=== PATIENT | female | born 1945 | race Caucasian/White ===

== ENCOUNTER 2020-07-03 06:08 | Inpatient (IN) ==
[2020-06-23 12:52] LABS: Basophils % 0.6 % (0.0-0.8); Eosinophils # 0.1 10*3/uL (0.0-0.87); Eosinophils % 2.3 % (0.00-10.9); Hematocrit 41.1 VOL% (35.7-47.0); Hemoglobin 13.3 GM/DL (12.0-16.0); Immature Granulocytes % 0.2 %; Immature Granulocytes Absolute 0.01 #; Lymphocytes # 1.4 10*3/uL (1.4-4.0); Lymphocytes % 27.7 % (21.3-54.2); Mean Corpuscular HGB Conc 32.4 GM/DL (32-36); Mean Corpuscular Volume 94.3 FL (87-102); Mean Platelet Volume 11.4 FL (9.6-12.0); Monocytes % 8.3 % (1.7-12.7); Neutrophils % 60.9 % (38.7-73.9); Platelet Count 185 T/CUMM (130-400); Red Blood Count 4.36 MC/CUMM (3.8-5.5); Red Cell Distribution Width 12.1 % (9.3-17.3); White Blood Count 5.2 T/CUMM (4-12)
[2020-06-23 13:21] LABS: Albumin 3.8 G/DL (3.4-5.0); Bilirubin,Total 0.5 MG/DL (0.2-1.0); Calcium 8.6 MG/DL (8.5-10.1); Osmolality,Calculated 279.4 MOS/KG (273-304); Total Protein 7.5 G/DL (6.4-8.3)
[2020-07-03] MEDS ORDERED: FAMOTIDINE 20 MG/2 ML VIAL IV ONE ×2 (06:26→06:31)
[2020-07-03] MEDS ORDERED: ALVIMOPAN 12 MG CAPSULE PO ONE (06:30)
[2020-07-03] MEDS ORDERED: LACTATED RINGERS 1,000 ML IV SCH (06:30)
[2020-07-03] MEDS ORDERED: DEXAMETHASONE 4 MG/1 ML VIAL ONE (06:51)
[2020-07-03] MEDS ORDERED: ROPIVACAINE 0.5% 30 ML VIAL ONE (06:51)
[2020-07-03] MEDS ORDERED: DEXMEDETOMIDINE 200 MCG/2 ML VIAL ONE (06:51)
[2020-07-03] MEDS ORDERED: MIDAZOLAM 2 MG/2 ML VIAL ONE (06:51)
[2020-07-03] MEDS ORDERED: LIDOCAINE 1% 5 ML VIAL ONE (06:51)
[2020-07-03] MEDS ORDERED: fentaNYL 100 MCG/2 ML VIAL ONE (08:02)
[2020-07-03] MEDS ORDERED: propofoL 200 MG/20 ML VIAL IV ONE (08:40)
[2020-07-03] MEDS ORDERED: LIDOCAINE 2% 5 ML VIAL ONE (08:40)
[2020-07-03] MEDS ORDERED: ONDANSETRON 4 MG/2 ML VIAL ONE (08:40)
[2020-07-03] MEDS ORDERED: GLYCOPYRROLATE 0.4 MG/2 ML VIAL ONE ×2 (08:40→10:20)
[2020-07-03] MEDS ORDERED: ROCURONIUM 50 MG/5 ML VIAL IV ONE (08:40)
[2020-07-03] MEDS ORDERED: LACTATED RINGERS 1,000 ML IV ONE (09:25)
[2020-07-03] MEDS ORDERED: MICROFIBRILLAR COLLAGEN POWDER 1 GM CAN TOP ONE (09:44)
[2020-07-03] MEDS ORDERED: NEOSTIGMINE 10 MG/10 ML VIAL ONE ×2 (10:20→10:21)
[2020-07-03] MEDS ORDERED: PROMETHAZINE INJ 25 MG in SODIUM CHLORIDE 0.9% 50 ML IV PRN (10:44)
[2020-07-03] MEDS ORDERED: ONDANSETRON 4 MG/2 ML VIAL IV PRN (10:44)
[2020-07-03] MEDS ORDERED: diphenhydrAMINE 50 MG/1 ML VIAL IV PRN (10:44)
[2020-07-03] MEDS: MEPERIDINE 25 MG/1 ML VIAL IV PRN ×2 (10:50→11:00)
[2020-07-03 10:55] LABS: Bilirubin,Urine Negative (Negative); Blood, Urine Negative (Negative); Glucose,Urine (UA) Negative (Negative); Ketones,Urine Negative (Negative); Nitrite,Urine Positive (Negative); Protein,Urine Negative; Urine Appearance CLOUDY (Clear); Urine Color Yellow (Yellow); Urine Urobilinogen < 2.0 EU/DL (0.2-1.0); WBC,Urine 89 /HPF (0-6)
[2020-07-03] MEDS ORDERED: DESFLURANE 1 UNIT/15 MINUTE INH ONE (11:19)
[2020-07-03 12:36] LABS: Hematocrit 39.1 VOL% (35.7-47.0); Hemoglobin 12.6 GM/DL (12.0-16.0)
[2020-07-03] MEDS: HYDROmorphone 2 MG/1 ML VIAL IV PRN ×3 (13:03→23:55)
[2020-07-03] MEDS: metroNIDAZOLE INJ 500 MG in PREMIX 1 EACH IV SCH (16:29)
[2020-07-03] MEDS ORDERED: HYDROmorphone 2 MG/1 ML VIAL IV ONE (17:41)
[2020-07-03] MEDS: ACETAMINOPHEN 325 MG TABLET PO SCH ×3 (17:57→23:55)
[2020-07-03] MEDS: hydrALAZINE 20 MG/1 ML VIAL IV PRN (17:58)
[2020-07-03 19:56] LABS: Hematocrit 40.4 VOL% (35.7-47.0); Hemoglobin 13.2 GM/DL (12.0-16.0)
[2020-07-03] MEDS: ONDANSETRON 4 MG/2 ML VIAL IV PRN (20:07)
[2020-07-04] MEDS: metroNIDAZOLE INJ 500 MG in PREMIX 1 EACH IV SCH (01:01)
[2020-07-04] MEDS: HYDROmorphone 2 MG/1 ML VIAL IV PRN ×5 (02:10→14:21)
[2020-07-04] MEDS: ONDANSETRON 4 MG/2 ML VIAL IV PRN (02:10)
[2020-07-04] MEDS ORDERED: LEVOFLOXACIN INJ 500 MG in PREMIX 1 EACH IV SCH (05:00)
[2020-07-04] MEDS: ACETAMINOPHEN 325 MG TABLET PO SCH ×4 (05:08→23:54)
[2020-07-04 06:54] LABS: Basophils % 0.1 % (0.0-0.8); Eosinophils % 0.1 % (0.00-10.9); Hemoglobin 12.8 GM/DL (12.0-16.0); Immature Granulocytes % 0.5 %; Immature Granulocytes Absolute 0.08 #; Lymphocytes # 0.8 10*3/uL (1.4-4.0); Lymphocytes % 4.8 % (21.3-54.2); Mean Corpuscular HGB Conc 32.8 GM/DL (32-36); Mean Corpuscular Volume 92.2 FL (87-102); Mean Platelet Volume 10.8 FL (9.6-12.0); Monocytes % 6.5 % (1.7-12.7); Platelet Count 247 T/CUMM (130-400); Red Blood Count 4.23 MC/CUMM (3.8-5.5); Red Cell Distribution Width 12.4 % (9.3-17.3); White Blood Count 15.5 T/CUMM (4-12)
[2020-07-04 07:22] LABS: Band Neutrophils 10 % (0-10); Eosinophils 1 % (0-10); Hypochromasia 1+; Lymphocytes 4 % (20-55); Microcytosis Slight; Segmented Neutrophils 77 % (50-85); Total Cells Counted 100
[2020-07-04 07:23] LABS: Ovalocytes Slight; Platelet Estimate Normal
[2020-07-04 07:25] LABS: Calcium 7.4 MG/DL (8.5-10.1)
[2020-07-04] MEDS ORDERED: tiZANidine 4 MG TABLET PO PRN (09:14)
[2020-07-04] MEDS: HYOSCYAMINE 0.125 MG TABLET PO SCH ×4 (12:16→20:59)
[2020-07-04] MEDS ORDERED: NALOXONE 0.4 MG/ML VIAL IV PRN (14:35)
[2020-07-04] MEDS: HYDROmorphone PCA 30 MG/30 ML SYRINGE IV SCH (15:44)
[2020-07-04] MEDS: PARoxetine 20 MG TABLET PO SCH ×2 (20:59→21:58)
[2020-07-05] MEDS: LEVOTHYROXINE 112 MCG TABLET PO SCH (06:01)
[2020-07-05] MEDS: ACETAMINOPHEN 325 MG TABLET PO SCH ×4 (06:01→23:58)
[2020-07-05 06:31] LABS: Basophils # 0.1 10*3/uL (0.0-0.2); Basophils % 0.4 % (0.0-0.8); Eosinophils # 0.1 10*3/uL (0.0-0.87); Eosinophils % 0.4 % (0.00-10.9); Hematocrit 38.7 VOL% (35.7-47.0); Hemoglobin 12.6 GM/DL (12.0-16.0); Immature Granulocytes % 0.2 %; Immature Granulocytes Absolute 0.03 #; Lymphocytes # 0.3 10*3/uL (1.4-4.0); Mean Corpuscular HGB Conc 32.6 GM/DL (32-36); Mean Platelet Volume 11.3 FL (9.6-12.0); Monocytes % 3.2 % (1.7-12.7); Neutrophils % 93.8 % (38.7-73.9); Platelet Count 256 T/CUMM (130-400); Red Blood Count 4.16 MC/CUMM (3.8-5.5); Red Cell Distribution Width 12.6 % (9.3-17.3); White Blood Count 12.4 T/CUMM (4-12)
[2020-07-05 08:43] LABS: Calcium 8.3 MG/DL (8.5-10.1); Osmolality,Calculated 280.4 MOS/KG (273-304)
[2020-07-05] MEDS: HYOSCYAMINE 0.125 MG TABLET PO SCH ×4 (08:54→20:58)
[2020-07-05] MEDS: CALCIUM (CARBONATE) 500 MG TABLET PO SCH (08:54)
[2020-07-05] MEDS: SODIUM CHLORIDE 0.45% 1,000 ML IV SCH ×2 (08:54→23:05)
[2020-07-05 09:43] LABS: Band Neutrophils 6 % (0-10); Lymphocytes 2 % (20-55); Segmented Neutrophils 81 % (50-85); Total Cells Counted 100
[2020-07-05 09:44] LABS: Polychromasia Slight
[2020-07-05 09:45] LABS: Ovalocytes Slight; Platelet Estimate Adequate
[2020-07-05] MEDS: POTASSIUM CHLORIDE RIDER 10 MEQ in PREMIX 1 EACH IV PRN ×5 (12:02→18:15)
[2020-07-05] MEDS: PARoxetine 20 MG TABLET PO SCH (20:58)
[2020-07-06] MEDS: ONDANSETRON 4 MG/2 ML VIAL IV PRN ×2 (01:48→07:29)
[2020-07-06] MEDS: POTASSIUM CHLORIDE RIDER 10 MEQ in PREMIX 1 EACH IV PRN ×3 (01:49→03:59)
[2020-07-06] MEDS: hydrALAZINE 20 MG/1 ML VIAL IV PRN ×3 (06:37→21:34)
[2020-07-06] MEDS: LEVOTHYROXINE 112 MCG TABLET PO SCH (06:54)
[2020-07-06] MEDS: ACETAMINOPHEN 325 MG TABLET PO SCH ×3 (06:54→17:24)
[2020-07-06] MEDS: HYDROmorphone PCA 30 MG/30 ML SYRINGE IV SCH ×2 (07:17→14:36)
[2020-07-06] MEDS: HYOSCYAMINE 0.125 MG TABLET PO SCH ×4 (09:21→21:27)
[2020-07-06] MEDS: CALCIUM (CARBONATE) 500 MG TABLET PO SCH (09:21)
[2020-07-06] MEDS: SODIUM CHLORIDE 0.45% 1,000 ML IV SCH (12:15)
[2020-07-06] MEDS: SULFAMETHOX/TRIMETHOPRIM 800-160 MG TABLET PO SCH ×2 (12:15→21:10)
[2020-07-06] MEDS: PARoxetine 20 MG TABLET PO SCH (21:09)
[2020-07-07] MEDS: ACETAMINOPHEN 325 MG TABLET PO SCH ×4 (00:46→17:27)
[2020-07-07] MEDS: SODIUM CHLORIDE 0.45% 1,000 ML IV SCH ×2 (00:47→14:09)
[2020-07-07] MEDS: hydrALAZINE 20 MG/1 ML VIAL IV PRN (01:08)
[2020-07-07] MEDS: LEVOTHYROXINE 112 MCG TABLET PO SCH (05:41)
[2020-07-07 06:28] LABS: Calcium 8.8 MG/DL (8.5-10.1)
[2020-07-07 09:12] LABS: Basophils % 0.1 % (0.0-0.8); Hematocrit 32.6 VOL% (35.7-47.0); Hemoglobin 11.1 GM/DL (12.0-16.0); Immature Granulocytes % 0.7 %; Immature Granulocytes Absolute 0.07 #; Lymphocytes # 0.4 10*3/uL (1.4-4.0); Lymphocytes % 4.2 % (21.3-54.2); Mean Corpuscular Volume 90.1 FL (87-102); Mean Platelet Volume 10.5 FL (9.6-12.0); Platelet Count 298 T/CUMM (130-400); Red Blood Count 3.62 MC/CUMM (3.8-5.5); Red Cell Distribution Width 12.9 % (9.3-17.3); White Blood Count 10.4 T/CUMM (4-12)
[2020-07-07 09:41] LABS: Hypochromasia 1+; Lymphocytes 4 % (20-55); Microcytosis Slight; Ovalocytes Slight; Segmented Neutrophils 94 % (50-85); Total Cells Counted 100
[2020-07-07 09:42] LABS: Platelet Estimate Normal
[2020-07-07] MEDS: ONDANSETRON 4 MG/2 ML VIAL IV PRN (10:38)
[2020-07-07] MEDS: HYOSCYAMINE 0.125 MG TABLET PO SCH ×4 (10:38→20:56)
[2020-07-07] MEDS: CALCIUM (CARBONATE) 500 MG TABLET PO SCH (10:39)
[2020-07-07] MEDS: SULFAMETHOX/TRIMETHOPRIM 800-160 MG TABLET PO SCH ×2 (10:39→20:55)
[2020-07-07] MEDS ORDERED: HYDROmorphone 2 MG/1 ML VIAL IV PRN ×2 (11:49)
[2020-07-07] MEDS: PARoxetine 20 MG TABLET PO SCH (20:55)
[2020-07-08] MEDS: hydrALAZINE 20 MG/1 ML VIAL IV PRN ×3 (00:10→12:38)
[2020-07-08] MEDS: ACETAMINOPHEN 325 MG TABLET PO SCH ×5 (00:10→23:11)
[2020-07-08] MEDS: ONDANSETRON 4 MG/2 ML VIAL IV PRN ×2 (03:42→10:47)
[2020-07-08] MEDS: SODIUM CHLORIDE 0.45% 1,000 ML IV SCH (03:45)
[2020-07-08] MEDS: LEVOTHYROXINE 112 MCG TABLET PO SCH (05:34)
[2020-07-08] MEDS ORDERED: POTASSIUM CHLORIDE RIDER 10 MEQ in PREMIX 1 EACH IV PRN (07:11)
[2020-07-08 09:14] LABS: Calcium 8.6 MG/DL (8.5-10.1); Osmolality,Calculated 263.4 MOS/KG (273-304)
[2020-07-08] MEDS: CALCIUM (CARBONATE) 500 MG TABLET PO SCH (09:33)
[2020-07-08] MEDS: SULFAMETHOX/TRIMETHOPRIM 800-160 MG TABLET PO SCH ×2 (09:34→21:00)
[2020-07-08] MEDS: HYOSCYAMINE 0.125 MG TABLET PO SCH ×4 (09:34→20:59)
[2020-07-08] MEDS: POTASSIUM CHLORIDE RIDER 10 MEQ in PREMIX 1 EACH IV PRN ×4 (12:36→23:11)
[2020-07-08] MEDS ORDERED: MAGNESIUM SULF RIDER 2 GM in PREMIX 1 EACH IV ONE (13:00)
[2020-07-08] MEDS: HYDROmorphone 2 MG/1 ML VIAL IV PRN ×2 (15:03→20:58)
[2020-07-08] MEDS: PARoxetine 20 MG TABLET PO SCH (20:59)
[2020-07-09] MEDS: POTASSIUM CHLORIDE RIDER 10 MEQ in PREMIX 1 EACH IV PRN (00:17)
[2020-07-09] MEDS: hydrALAZINE 20 MG/1 ML VIAL IV PRN ×2 (04:09→19:24)
[2020-07-09] MEDS: ACETAMINOPHEN 325 MG TABLET PO SCH ×4 (05:26→23:00)
[2020-07-09] MEDS: ONDANSETRON 4 MG/2 ML VIAL IV PRN ×3 (05:27→18:13)
[2020-07-09] MEDS: LEVOTHYROXINE 112 MCG TABLET PO SCH (05:30)
[2020-07-09] MEDS: HYDROmorphone 2 MG/1 ML VIAL IV PRN ×3 (05:30→20:31)
[2020-07-09] MEDS ORDERED: BISACODYL 10 MG SUPP RECTAL ONE (07:50)
[2020-07-09] MEDS: HYOSCYAMINE 0.125 MG TABLET PO SCH ×4 (09:09→20:31)
[2020-07-09] MEDS: CALCIUM (CARBONATE) 500 MG TABLET PO SCH (09:09)
[2020-07-09] MEDS: SULFAMETHOX/TRIMETHOPRIM 800-160 MG TABLET PO SCH (09:10)
[2020-07-09] MEDS: SODIUM CHLORIDE 0.45% 1,000 ML IV SCH ×2 (09:10→23:00)
[2020-07-09] MEDS: amLODIPine 5 MG TABLET PO SCH (15:28)
[2020-07-09] MEDS ORDERED: MAGNESIUM SULF RIDER 4 GM in PREMIX 1 EACH IV PRN (15:57)
[2020-07-09] MEDS: PARoxetine 20 MG TABLET PO SCH (20:31)
[2020-07-10] MEDS: HYDROmorphone 2 MG/1 ML VIAL IV PRN (04:49)
[2020-07-10] MEDS: ACETAMINOPHEN 325 MG TABLET PO SCH ×3 (05:46→18:28)
[2020-07-10] MEDS: LEVOTHYROXINE 112 MCG TABLET PO SCH (05:46)
[2020-07-10 06:19] LABS: Basophils # 0.1 10*3/uL (0.0-0.2); Basophils % 0.4 % (0.0-0.8); Eosinophils # 0.2 10*3/uL (0.0-0.87); Eosinophils % 1.2 % (0.00-10.9); Hematocrit 34.7 VOL% (35.7-47.0); Hemoglobin 11.7 GM/DL (12.0-16.0); Immature Granulocytes % 3.1 %; Immature Granulocytes Absolute 0.38 #; Lymphocytes # 1.4 10*3/uL (1.4-4.0); Lymphocytes % 11.1 % (21.3-54.2); Mean Corpuscular HGB Conc 33.7 GM/DL (32-36); Mean Corpuscular Volume 89.2 FL (87-102); Mean Platelet Volume 10.4 FL (9.6-12.0); Monocytes % 6.3 % (1.7-12.7); Neutrophils % 77.9 % (38.7-73.9); Platelet Count 356 T/CUMM (130-400); Red Blood Count 3.89 MC/CUMM (3.8-5.5); Red Cell Distribution Width 13.2 % (9.3-17.3); White Blood Count 12.2 T/CUMM (4-12)
[2020-07-10 06:49] LABS: Calcium 8.2 MG/DL (8.5-10.1); Osmolality,Calculated 265.2 MOS/KG (273-304)
[2020-07-10] MEDS: CALCIUM (CARBONATE) 500 MG TABLET PO SCH (09:00)
[2020-07-10] MEDS: amLODIPine 5 MG TABLET PO SCH (09:00)
[2020-07-10] MEDS: HYOSCYAMINE 0.125 MG TABLET PO SCH ×4 (09:01→20:42)
[2020-07-10] MEDS ORDERED: LOSARTAN 25 MG TABLET PO SCH (09:30)
[2020-07-10] MEDS ORDERED: amLODIPine 5 MG TABLET PO ONE (09:30)
[2020-07-10] MEDS ORDERED: POTASSIUM CHLORIDE 20 MEQ TABLET PO ONE (09:30)
[2020-07-10] MEDS ORDERED: amLODIPine 10 MG TABLET PO SCH (09:30)
[2020-07-10] MEDS: oxyCODONE/ACETAMINOPHEN 5-325 MG TABLET PO PRN ×3 (10:09→21:33)
[2020-07-10] MEDS: SODIUM CHLORIDE 0.45% 1,000 ML IV SCH ×3 (10:15→21:32)
[2020-07-10] MEDS ORDERED: TUBERCULIN SKIN TEST 0.1 ML SYRINGE INTRADERM ONE (10:29)
[2020-07-10] MEDS: METOCLOPRAMIDE 10 MG/2 ML VIAL IV SCH ×2 (13:03→17:24)
[2020-07-10] MEDS: ONDANSETRON 4 MG/2 ML VIAL IV PRN (16:45)
[2020-07-10] MEDS: hydrALAZINE 20 MG/1 ML VIAL IV PRN (20:41)
[2020-07-10] MEDS: PARoxetine 20 MG TABLET PO SCH (20:42)
[2020-07-11] MEDS: METOCLOPRAMIDE 10 MG/2 ML VIAL IV SCH ×5 (00:05→23:52)
[2020-07-11] MEDS: ACETAMINOPHEN 325 MG TABLET PO SCH ×4 (00:07→18:29)
[2020-07-11] MEDS: POTASSIUM CHLORIDE RIDER 10 MEQ in PREMIX 1 EACH IV PRN ×5 (01:55→05:52)
[2020-07-11] MEDS: LEVOTHYROXINE 112 MCG TABLET PO SCH (05:52)
[2020-07-11] MEDS: oxyCODONE/ACETAMINOPHEN 5-325 MG TABLET PO PRN (05:59)
[2020-07-11 06:25] LABS: Basophils % 0.4 % (0.0-0.8); Eosinophils # 0.1 10*3/uL (0.0-0.87); Eosinophils % 1.5 % (0.00-10.9); Hematocrit 34.1 VOL% (35.7-47.0); Hemoglobin 11.4 GM/DL (12.0-16.0); Immature Granulocytes % 3.1 %; Lymphocytes # 1.2 10*3/uL (1.4-4.0); Mean Corpuscular HGB Conc 33.4 GM/DL (32-36); Mean Platelet Volume 9.4 FL (9.6-12.0); Monocytes % 7.3 % (1.7-12.7); Neutrophils % 75.7 % (38.7-73.9); Platelet Count 337 T/CUMM (130-400); Red Blood Count 3.79 MC/CUMM (3.8-5.5); Red Cell Distribution Width 13.2 % (9.3-17.3); White Blood Count 9.6 T/CUMM (4-12)
[2020-07-11 06:41] LABS: Osmolality,Calculated 266.1 MOS/KG (273-304)
[2020-07-11] MEDS: hydrALAZINE 20 MG/1 ML VIAL IV PRN (08:17)
[2020-07-11] MEDS: MAGNESIUM SULF RIDER 2 GM in PREMIX 1 EACH IV PRN (08:23)
[2020-07-11] MEDS: CALCIUM (CARBONATE) 500 MG TABLET PO SCH (08:28)
[2020-07-11] MEDS: amLODIPine 10 MG TABLET PO SCH (08:28)
[2020-07-11] MEDS: HYOSCYAMINE 0.125 MG TABLET PO SCH ×4 (08:29→20:29)
[2020-07-11] MEDS: ONDANSETRON 4 MG/2 ML VIAL IV PRN (09:22)
[2020-07-11] MEDS ORDERED: PROMETHAZINE 25 MG/1 ML VIAL IM PRN (10:25)
[2020-07-11] MEDS ORDERED: KETOROLAC 15 MG/1 ML VIAL IV PRN (10:27)
[2020-07-11] MEDS: ONDANSETRON 4 MG/2 ML VIAL IV SCH ×3 (10:30→22:34)
[2020-07-11] MEDS: cefTRIAXone 1,000 MG in SYRINGE 1 EACH IV SCH (11:36)
[2020-07-11] MEDS: AZITHROMYCIN INJ 500 MG in SODIUM CHLORIDE 0.9% 250 ML IV SCH (11:40)
[2020-07-11] MEDS: SODIUM CHLORIDE 0.45% 1,000 ML IV SCH (16:27)
[2020-07-11] MEDS: PARoxetine 20 MG TABLET PO SCH (20:28)
[2020-07-11] MEDS: hydrALAZINE 25 MG TABLET PO SCH (20:29)
[2020-07-12] MEDS: ACETAMINOPHEN 325 MG TABLET PO SCH ×4 (00:03→18:24)
[2020-07-12 06:14] LABS: Basophils # 0.1 10*3/uL (0.0-0.2); Basophils % 0.5 % (0.0-0.8); Eosinophils # 0.1 10*3/uL (0.0-0.87); Eosinophils % 1.2 % (0.00-10.9); Hematocrit 33.7 VOL% (35.7-47.0); Hemoglobin 11.5 GM/DL (12.0-16.0); Immature Granulocytes % 2.6 %; Immature Granulocytes Absolute 0.26 #; Lymphocytes # 0.9 10*3/uL (1.4-4.0); Lymphocytes % 8.6 % (21.3-54.2); Mean Corpuscular HGB Conc 34.1 GM/DL (32-36); Mean Corpuscular Volume 88.9 FL (87-102); Mean Platelet Volume 9.2 FL (9.6-12.0); Monocytes % 7.2 % (1.7-12.7); Neutrophils % 79.9 % (38.7-73.9); Platelet Count 333 T/CUMM (130-400); Red Blood Count 3.79 MC/CUMM (3.8-5.5); Red Cell Distribution Width 13.5 % (9.3-17.3)
[2020-07-12] MEDS: ONDANSETRON 4 MG/2 ML VIAL IV SCH ×3 (06:22→18:31)
[2020-07-12] MEDS: METOCLOPRAMIDE 10 MG/2 ML VIAL IV SCH ×3 (06:23→18:34)
[2020-07-12] MEDS: LEVOTHYROXINE 112 MCG TABLET PO SCH (06:25)
[2020-07-12 06:44] LABS: Band Neutrophils 2 % (0-10); Lymphocytes 8 % (20-55); Platelet Estimate Normal; Segmented Neutrophils 84 % (50-85); Total Cells Counted 100
[2020-07-12] MEDS: hydrALAZINE 25 MG TABLET PO SCH (09:08)
[2020-07-12] MEDS: amLODIPine 10 MG TABLET PO SCH (09:08)
[2020-07-12] MEDS: CALCIUM (CARBONATE) 500 MG TABLET PO SCH (09:09)
[2020-07-12] MEDS: HYOSCYAMINE 0.125 MG TABLET PO SCH ×3 (09:09→18:31)
[2020-07-12] MEDS: cefTRIAXone 1,000 MG in SYRINGE 1 EACH IV SCH (10:36)
[2020-07-12] MEDS: SODIUM CHLORIDE 0.45% 1,000 ML IV SCH ×2 (11:26→13:50)
[2020-07-12] MEDS: AZITHROMYCIN INJ 500 MG in SODIUM CHLORIDE 0.9% 250 ML IV SCH (11:49)
[2020-07-12] MEDS: POTASSIUM CHLORIDE RIDER 10 MEQ in PREMIX 1 EACH IV PRN ×4 (16:03→20:31)
[2020-07-12] MEDS: PARoxetine 20 MG TABLET PO SCH (21:38)
[2020-07-13] MEDS: HYOSCYAMINE 0.125 MG TABLET PO SCH ×5 (00:30→22:45)
[2020-07-13] MEDS: ONDANSETRON 4 MG/2 ML VIAL IV SCH ×5 (00:30→22:45)
[2020-07-13] MEDS: ACETAMINOPHEN 325 MG TABLET PO SCH ×4 (00:37→18:06)
[2020-07-13] MEDS: METOCLOPRAMIDE 10 MG/2 ML VIAL IV SCH ×4 (00:37→18:10)
[2020-07-13 05:48] LABS: Basophils % 0.3 % (0.0-0.8); Eosinophils # 0.1 10*3/uL (0.0-0.87); Eosinophils % 1.3 % (0.00-10.9); Hemoglobin 11.2 GM/DL (12.0-16.0); Immature Granulocytes % 2.7 %; Immature Granulocytes Absolute 0.25 #; Lymphocytes # 0.9 10*3/uL (1.4-4.0); Lymphocytes % 9.2 % (21.3-54.2); Mean Corpuscular HGB Conc 33.9 GM/DL (32-36); Mean Corpuscular Volume 89.9 FL (87-102); Mean Platelet Volume 9.6 FL (9.6-12.0); Monocytes % 7.8 % (1.7-12.7); Neutrophils % 78.7 % (38.7-73.9); Platelet Count 310 T/CUMM (130-400); Red Blood Count 3.67 MC/CUMM (3.8-5.5); Red Cell Distribution Width 13.9 % (9.3-17.3); White Blood Count 9.3 T/CUMM (4-12)
[2020-07-13] MEDS: LEVOTHYROXINE 112 MCG TABLET PO SCH (05:59)
[2020-07-13 06:08] LABS: Calcium 7.5 MG/DL (8.5-10.1); Osmolality,Calculated 273.7 MOS/KG (273-304)
[2020-07-13] MEDS: SODIUM CHLORIDE 0.45% 1,000 ML IV SCH ×2 (07:45→20:56)
[2020-07-13] MEDS: amLODIPine 10 MG TABLET PO SCH (09:46)
[2020-07-13] MEDS: CALCIUM (CARBONATE) 500 MG TABLET PO SCH (09:46)
[2020-07-13] MEDS: cefTRIAXone 1,000 MG in SYRINGE 1 EACH IV SCH (11:49)
[2020-07-13] MEDS: AZITHROMYCIN INJ 500 MG in SODIUM CHLORIDE 0.9% 250 ML IV SCH (12:45)
[2020-07-13] MEDS: MAGNESIUM SULF RIDER 2 GM in PREMIX 1 EACH IV PRN (16:52)
[2020-07-13] MEDS: POTASSIUM CHLORIDE 20 MEQ TABLET PO PRN (18:29)
[2020-07-13] MEDS: PARoxetine 20 MG TABLET PO SCH (22:45)
[2020-07-14] MEDS: METOCLOPRAMIDE 10 MG/2 ML VIAL IV SCH ×3 (00:52→12:07)
[2020-07-14] MEDS: ACETAMINOPHEN 325 MG TABLET PO SCH ×3 (00:52→12:08)
[2020-07-14] MEDS: POTASSIUM CHLORIDE 20 MEQ TABLET PO PRN ×2 (04:32→09:24)
[2020-07-14] MEDS: ONDANSETRON 4 MG/2 ML VIAL IV SCH ×2 (04:57→11:13)
[2020-07-14] MEDS: LEVOTHYROXINE 112 MCG TABLET PO SCH (06:10)
[2020-07-14] MEDS: amLODIPine 10 MG TABLET PO SCH (09:08)
[2020-07-14] MEDS: HYOSCYAMINE 0.125 MG TABLET PO SCH (09:08)
[2020-07-14] MEDS: CALCIUM (CARBONATE) 500 MG TABLET PO SCH (09:08)
[2020-07-14] MEDS: MAGNESIUM SULF RIDER 2 GM in PREMIX 1 EACH IV PRN (09:24)
[2020-07-14 11:53] VITALS: BP 164/83
[2020-07-14] MEDS: cefTRIAXone 1,000 MG in SYRINGE 1 EACH IV SCH (12:07)
[2020-07-14] MEDS: AZITHROMYCIN INJ 500 MG in SODIUM CHLORIDE 0.9% 250 ML IV SCH (12:09)
== END 2020-07-14 12:58 | disposition home health service (06) | DRG 329 ==
LOC: N.OR 06:08 → N.SDSINP 06:09 → N.3E 10:04
PROVIDERS: ADMIT Surgery; ATTEND Surgery